=== PATIENT | male | born 1960 | race Caucasian/White ===

== ENCOUNTER 2016-10-07 06:26 | Day surgery (SDC) | payer OTHER ==
--- NOTE | ~2016-10-07 | EGD ---
EGD REPORT [facility] [address] [id number] NAME: GENARO GOYAL : 60 STATUS : REG [facility] [place] PAT#: [id number] AGE: 56 ADM/REG DATE : 10/07/16 MR#: [id number] REPORT SERV DATE: 10/07/16 DICTATED BY: MAIKOL AHN DATE: 10/07/16 REPORT STATUS : Draft [facility]ANS[facility] BY: [facility] DATE: 10/07/16 [facility] Patient Name: Genaro Goyal Date of : 1960 Attending MD: MAIKOL AHN MD Procedure Date No Time: 10/07/2016 Procedure: Colonoscopy Indications: High risk colon cancer surveillance: Personal history of colonic polyps, Incidental - Abdominal pain Referring MD: ROSALIND ROSALES Medicines: Sedation Required Anesthesia Staff Assistance Complications: No immediate complications. Estimated blood loss: None. Procedure: After I obtained informed consent, the scope was passed under direct vision. Throughout the procedure, the patient's blood pressure, pulse, and oxygen saturations were monitored continuously. The PCF [id number] was introduced through the anus and advanced to the cecum, identified by appendiceal orifice and ileocecal valve. The colonoscopy was performed without difficulty. The patient tolerated the procedure well. The quality of the bowel preparation was fair. The ileocecal valve, appendiceal orifice and rectum were photographed. Findings: Multiple small and large-mouthed diverticula were found in the sigmoid colon and in the descending colon. The exam was otherwise without abnormality. Impression: - Diverticulosis in the sigmoid colon and in the descending colon. - The examination was otherwise normal. Recommendation: - Discharge patient to home. - Return to previous diet daily. - Continue present medications. - Repeat colonoscopy in 5 years for surveillance. Procedure Code(s): --- Professional --- 46729, Colonoscopy, flexible, proximal to splenic flexure; diagnostic, with or without collection of specimen(s) by brushing or washing, with or without colon decompression (separate procedure) Diagnosis Code(s): --- Professional --- K57.30, Diverticulosis of large intestine without EGD REPORT [facility] [address] [id number] NAME: GENARO GOYAL : 60 STATUS : REG [facility] [place] PAT#: [id number] AGE: 56 ADM/REG DATE : 10/07/16 MR#: [id number] REPORT SERV DATE: 10/07/16 DICTATED BY: MAIKOL AHN. DATE: 10/07/16 REPORT STATUS : Draft TRANSCRIBED BY: [employer] DATE: 10/07/16 perforation or abscess without bleeding Z86.010, Personal history of colonic polyps CPT copyright 2013 [employer]. All rights reserved. The codes documented in this report are preliminary and upon hcc coders review may be revised to meet current compliance requirements. MAIKOL AHN MD 10/07/2016 8:26 AM This report has been signed electronically. Number of Addenda: 0 Note Initiated On: 10/07/2016 7:53 AM Scope Withdrawal Time 0 hours 6 minutes 36 seconds [address] [phone]
[~2016-10-07 06:26] MED LIST: ASAB PO; DOLOPHINE10 MG PO; FLECTOR1.3 % TOP; L40 PO; LYRICA300 MG PO; MICROZIDE PO; MOBIC7.5 PO; OPANA ER30 MG PO; PAIN TOP; PRIN20 PO; ROXICODONE30 MG PO; SOMATAB PO; SYN125 PO
== END 2016-10-07 23:59 | disposition home or self-care (01) ==
LOC: DMU 06:26
PROVIDERS: Internal Medicine Gastroenterology
PROC: 0DJD8ZZ Inspection of Lower Intestinal Tract, Via Natural or Artificial Opening Endoscopic (ICD-10-PCS; principal; 2016-10-07 07:30)
DX: Z12.11 Encounter for screening for malignant neoplasm of colon (principal); K57.30 Diverticulosis of large intestine without perforation or abscess without bleeding; R10.9 Unspecified abdominal pain; G89.29 Other chronic pain; E66.9 Obesity, unspecified; G47.30 Sleep apnea, unspecified; F17.210 Nicotine dependence, cigarettes, uncomplicated; I10 Essential (primary) hypertension; Z86.73 Personal history of transient ischemic attack (TIA), and cerebral infarction without residual deficits; Z86.010 Personal history of colon polyps; Z79.899 Other long term (current) drug therapy; Z79.82 Long term (current) use of aspirin; Z79.891 Long term (current) use of opiate analgesic; Z88.0 Allergy status to penicillin; Z88.5 Allergy status to narcotic agent